=== PATIENT | female | born 1990 | race Two or more races ===

== ENCOUNTER 2023-09-17 18:17 | Emergency (ER) | payer OTHER ==
[~2023-09-17] VITALS: Ht 177.8 cm; Wt 98.0 kg
[2023-09-17 18:30] VITALS: TEMP 98.9
[2023-09-17 19:05] LABS: PREGNANCY TEST URINE QUAL NEGATIVE (NEGATIVE)
[2023-09-17] MEDS ORDERED: HYDROCODONE/APAP 5/325MG TABLET ONE (19:13)
[2023-09-17] MEDS: HYDROCODONE/APAP 5/325MG TABLET PO ONE (19:15)
[2023-09-17] MEDS ORDERED: GABA-532 PO (21:00)
[2023-09-17] MEDS ORDERED: CYCL10TA9 PO (21:00)
[2023-09-17 21:07] VITALS: BP 125/84; O2SAT 99
== END 2023-09-17 21:07 | disposition home or self-care (01) ==
LOC: ER 18:24
DX: M54.6 Pain in thoracic spine (principal)
CPT/HCPCS: 99284; 72128; 84703; L0172